=== PATIENT | female | born 1970 | race Caucasian/White ===

== ENCOUNTER 2020-05-24 05:50 | Day surgery (SDC) | payer OTHER ==
[~2020-05-24] VITALS: Ht 154.9 cm; Wt 89.8 kg
--- NOTE | ~2020-05-24 | OR ---
[facility] [address], [place] [address] Draft DATE OF OPERATION: 05/24/2020 SURGEON: Libby Boswell MD PREOPERATIVE DIAGNOSIS: 9 mm left renal pelvis calculus. POSTOPERATIVE DIAGNOSES: 1. 9 mm left renal pelvis calculus. 2. Small left ureterocele. NAME OF PROCEDURES: Diagnostic cystoscopy with left ureteral stent insertion. ANESTHESIA: General. ESTIMATED BLOOD LOSS: None. COMPLICATIONS: None. SPECIMENS: None. DRAINS: A 5 x 22 cm double-J ureteral stent inserted into the left ureter. INDICATIONS FOR PROCEDURE: Ms. Wyman is a very pleasant 49-year-old female with a history of nephrolithiasis, who presents today to undergo definitive extraction of her known 9 mm left renal pelvis calculus. Although the stone is not actively obstructing, the patient does experience intermittent left-sided flank pain due to the shear size of the stone rubbing up against her left renal pelvis. She has no history of recurrent UTIs or voiding symptoms. However, she was evaluated by a doctor as a young child for reasons unknown and found to have a" small bladder." After discussion of the risks and benefits of the procedure, the patient has agreed to proceed. OPERATIVE FINDINGS: PATIENT NAME: CASH WYMAN OPERATIVE REPORT DATE OF : 72 REPORT #: [id number] PHYSICIAN: LIBBY BOSWELL MD PCP: NO PRIMARY CARE PHYSICIAN REPORT IS CONFIDENTIAL AND NOT TO BE RELEASED WITHOUT AUTHORIZATION [facility] [address], [place] [address] Draft 1. On cystoscopy, there was no evidence of any suspicious masses, lesions, or stones. Immediately noted is a hneem-rd-hvvucxgvro sized left ureterocele with a pinpoint opening. The opening is quite difficult to see with the open eye and did require fluorescein dye to assist in visualization of efflux from this pinpoint opening in the ureter. The right ureter is in normal position and is effluxing clear urine. 2. I attempted to perform a left retrograde pyelogram using a cone-tipped catheter. This was unsuccessful, mostly due to the diminutive sides of the ureteral orifice. However, I was finally able to successfully cannulate this orifice and was able to pass at first a 0.025 wire into the left renal pelvis. This wire was switched out for a 0.035 Sensor wire. 3. A 5 x 22 cm double-J ureteral stent was passed into the left collecting system under fluoroscopic guidance without any difficulty once the left ureter was successfully cannulated. DESCRIPTION OF PROCEDURE: After informed consent was obtained, the patient was taken back to the operating room. She was transferred from the [facility] to the operating room table, where general anesthesia was induced. She was placed in the dorsal lithotomy position and her genitalia were prepped and draped in a standard sterile fashion. Using a 30-degree lens on a 22.5-Ku[place]i introducer, rigid cystoscope was inserted through the urethra and into her bladder under direct visualization. Saunders endoscopic views of the bladder were then obtained. Please see above findings. At 1st, I made an attempt to perform a retrograde pyelogram using a cone-tipped catheter; however, I was unable to find the diminutive left ureteral orifice. IV fluorescein dye was then used to visualize the UO. Once the UO was visualized, I was able to cannulate it initially using a 0.025 Glidewire. This was ultimately switched out to a 0.035 Sensor wire for easier maneuver ability. I was successfully able to pass a 5-[place]i x 22 cm double-J ureteral stent into the left ureter without difficulty. I chose to abort the procedure at this time in order to confer with a pediatric urologist to discuss whether unroofing versus incision of the ureterocele will be required in order to extract the left renal calculus. Once the stent was in good position via fluoroscopy, the patient's bladder was then drained and the cystoscope was removed. The procedure was then terminated. The patient tolerated the procedure well without any complication. She will now be transferred to the postanesthesia care unit in stable condition. DISPOSITION: I discussed the details of today's procedure with the patient and her and answered all their questions. 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 The patient denies any history of recurrent UTIs or any hydronephrosis on the left side. The imaging comes from an outside facility, so I do not have the benefit of evaluating the images on my own and I am therefore reliant on a report, which does not mention any PATIENT NAME: CASH WYMAN OPERATIVE REPORT DATE OF : 72 REPORT #: [id number] PHYSICIAN: LIBBY BOSWELL MD PCP: NO PRIMARY CARE PHYSICIAN REPORT IS CONFIDENTIAL AND NOT TO BE RELEASED WITHOUT AUTHORIZATION [facility] [address] [place] [id number] Draft evidence of hydronephrosis on that side. I will bring the patient back in one week and allow the ureter to dilate with a stent in place for now. In that time, I will decide the best course of action for management of the left renal calculus, given the presence of a left ureterocele. She will be sent home with Cipro 500 mg p.o. b.i.d. for a total of 7 days, along with Percocet 5/325 dispense #30 as needed for pain. She will be scheduled to return to the operating room in one week to undergo left ureteroscopy with stone extraction and possible incision versus excision of the left ureterocele. MD BRY Dixon/JORDYNL /[id number] Copies: ~ PATIENT NAME: CASH WYMAN OPERATIVE REPORT DATE OF : 72 REPORT #: [id number] PHYSICIAN: LIBBY BOSWELL MD PCP: NO PRIMARY CARE PHYSICIAN REPORT IS CONFIDENTIAL AND NOT TO BE RELEASED WITHOUT AUTHORIZATION
[~2020-05-24 05:50] MED LIST: PERCOCET 5-3251 EACH PO
--- NOTE | 2020-05-24 08:50 | NUR ---
05/24/20 0850 Courtney Simmons [id number]- PT ARRIVES TO PACU NONAROUSABLE TO NOXIOUS STIMULI REQUIRING A JAW THRUST TO MAINTAIN A PATENT AIRWAY. RESP EVEN AND UNLABORED. OXYGEN SAT HIGH 90'S TO 100% ON 6L VIA MASK.
== END 2020-05-24 10:40 | disposition home or self-care (01) ==
LOC: DS 05:50
PROVIDERS: Urology
PROC: 0T778DZ Dilation of Left Ureter with Intraluminal Device, Via Natural or Artificial Opening Endoscopic (ICD-10-PCS; principal; 2020-05-24 06:45)
DX: N20.0 Calculus of kidney (principal); N28.89 Other specified disorders of kidney and ureter; Z79.899 Other long term (current) drug therapy
CPT/HCPCS: 00910; 74420; C1769; C2617; J0330; J0696; J1885; J2001; J2250; J2704; J7121; Q9967